=== PATIENT | female | born 1970 | race Caucasian/White ===

== ENCOUNTER 2022-07-08 08:07 | Emergency (ER) | payer BC ==
[2022-07-08] MEDS ORDERED: ONDANSETRON 4 MG/2 ML VIAL ONE (08:31)
[2022-07-08] MEDS ORDERED: FENTANYL CITR 100 MCG/2 ML ONE (08:31)
[2022-07-08] MEDS ORDERED: MAGNESIUM SULFATE 1 gm IVPB 1 GM/100 ML BAG IV ONE (08:31)
[2022-07-08] MEDS ORDERED: NA CHLORIDE 0.9% 1,000 ML ONE (08:31)
[2022-07-08 08:34] LABS: Absolute Lymphocytes (CBC) 2.1 K/uL (0.7-4.9); Hematocrit 38.3 % (36.0-45.0); Lymphocytes % 32.6 % (15.3-44.8); MPV 7.9 fL (7.6-11.3); RBC Red Blood Cell Count 4.26 M/uL (3.86-4.86)
[2022-07-08 08:51] LABS: Albumin 3.8 g/dL (3.4-5.0); Bilirubin Total 0.3 mg/dL (0.2-1.0); Potassium 4.1 mmol/L (3.5-5.1); Protein, Total 7.3 g/dL (6.4-8.2)
--- NOTE | 2022-07-08 09:13 | RAD REPORT ---
EXAM DESCRIPTION: CT - Stone Protocol - 07/08/2022 8:45 am CLINICAL HISTORY: Abdominal pain./reflected COMPARISON: None. TECHNIQUE: Computed axial tomography of the abdomen pelvis was obtained without oral or IV contrast. Lack of IV and oral contrast limits evaluation of solid organs, appendix, bowel, and vessels. Schwarz l reformatted images were obtained and reviewed. All CT scans are performed using dose optimization technique as appropriate and may include automated exposure control or mA/KV adjustment according to patient size. FINDINGS: Several left renal calculi. Mild to moderate left hydronephrosis. Left ureter dilated. 5 m illimeter calculus distal left ureter. Right renal/ureteral calculus is not seen. The liver, spleen, pancreas and adrenals appear grossly normal There is no evidence of diverticulitis. The appendix appears normal Air within the vagina. Small umbilical hernia IMPRESSION: 5 millimeter calculus distal left ureter resulting in mild to moderate hydronephrosis Air within the vagina can be insignificant. It also can signify infection and fistula
[2022-07-08 09:18] LABS: Urine Blood 2+ (Negative); Urine Glucose Negative (Negative); Urine Protein Trace (Negative)
[2022-07-08] MEDS ORDERED: KETOROLAC 30 MG/ML INJ ONE (09:24)
[2022-07-08 09:27] LABS: Transitional Epithelial <5 /HPF (None Seen); Urine Bacteria None Seen /HPF (<20); Urine Mucus 2+ /HPF (None Seen); Urine RBC >50 /HPF (None Seen)
[2022-07-08] MEDS ORDERED: TAMSULOSIN 0.4 MG SR CAP ONE (09:28)
[2022-07-08] MEDS ORDERED: KETAMINE HCL 500 MG/5 ML VIAL ONE (09:57)
--- NOTE | 2022-07-08 12:13 | EDPHYS ---
Physician Documentation [facility] Name: Viridiana Galaviz Age: 52 yrs Sex: Female : 1970 Arrival Date: 07/08/2022 Time: 08:11 Bed 20 Private MD: ED Physician Jagdish Mcguire HPI: 07/08 08:23 This 52 yrs old Female presents to ER via Ambulatory with complaints of Flank Pain, rn Abdominal Pain. 08:24 The patient presents with abdominal pain in the left lower quadrant. Onset: The rn symptoms/episode began/occurred this morning. The symptoms do not radiate. Associated signs and symptoms: Pertinent positives: nausea, Pertinent negatives: blood in stools, chest pain, constipation, diarrhea, dysuria, fever, shortness of breath. The symptoms are described as sharp, stabbing. Modifying factors: The symptoms are alleviated by nothing, the symptoms are aggravated by nothing. Severity of pain: At its worst the pain was moderate in the emergency department the pain is unchanged. The patient has experienced a previous episode. The patient has not recently seen a physician. Pt reports sudden onset left lower abd pain, assoc with nausea, no fever, + hx of kidney stones. No trauma. No vomiting or diarrhea. . 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 - Social history:: Smoking status: Patient denies any tobacco usage or history of. - Family history:: not pertinent. - Hospitalizations: : No recent hospitalization is reported. ROS: 08:24 Constitutional: Negative for fever, and weight loss, Eyes: Negative for injury, pain, rn redness, and discharge, Neck: Negative for injury, pain, and swelling, Cardiovascular: Negative for chest pain, palpitations, and edema, Respiratory: Negative for shortness of breath, cough, wheezing, and pleuritic chest pain, Abdomen/GI: + LLQ abd pain and nausea Back: Negative for injury and pain, : Negative for injury, bleeding, discharge, and swelling, MS/Extremity: Negative for injury and deformity, Skin: Negative for injury, rash, and discoloration, Neuro: Negative for headache, weakness, numbness, tingling, and seizure. Exam: 08:24 Constitutional: This is a well developed, well nourished patient who is awake, alert, rn appears uncomfortable Head/Face: Normocephalic, atraumatic. Cardiovascular: Regular rate and rhythm. No pulse deficits. Respiratory: No increased work of breathing, no retractions or nasal flaring. Abdomen/GI: Soft, non-tender Back: No spinal tenderness. No costovertebral tenderness. Full range of motion. Skin: Warm, dry MS/ Extremity: Pulses equal, no cyanosis. Neuro: Awake and alert, GCS 15 Vital Signs: 08:17 BP 96 / 62; Pulse 68; Resp 18; Temp 98.4; Pulse Ox 99% on R/A; Weight 92.99 kg; Height ph 5 ft. 7 in. (170.18 cm); 08:35 BP 102 / 70; Pulse 58; Resp 18; Pain 10/10; ll1 08:53 BP 107 / 59; Pulse 54; Resp 18; Pain 10/10; ll1 09:29 BP 105 / 48; Pulse 56; Resp 18; Pain 10/10; ll1 09:58 BP 96 / 55; Pulse 54; Resp 17; Pulse Ox 99% ; Pain 8/10; ll1 10:06 BP 124 / 77; Pulse 54; Resp 17; Pain 8/10; ll1 10:11 Pain 2/10; ll1 10:48 BP 108 / 66; Pulse 58; Resp 16; Pain 5/10; ll1 12:00 BP 105 / 69; Pulse 52; Resp 18; Pulse Ox 99% ; kb3 08:17 Body Mass Index 32.11 (92.99 kg, 170.18 cm) ph MDM: 08:11 Patient medically screened. rn 10:42 ED course: Pain improved to 4/10 after 15mg ketamine. Ketamine chosen due to borderline rn low BP. . 12:11 Differential diagnosis: diverticulitis, gastroesophageal reflux disease, non-specific rn abd pain, Pyelonephritis, Ureterolithiasis, urinary tract infection. Data reviewed: vital signs, nurses notes, lab test result(s), radiologic studies, CT scan, and as a result, I will discharge patient. Counseling: I had a detailed discussion with the patient and/or guardian regarding: the historical points, exam findings, and any diagnostic results supporting the discharge/admit diagnosis, lab results, radiology results, the need for outpatient follow up, to return to the emergency department if symptoms worsen or persist or if there are any questions or concerns that arise at home. Response to treatment: the patient's symptoms have markedly improved after treatment, and as a result, I will discharge patient. Special discussion: I discussed with the patient/guardian in detail that at this point there is no indication for admission to the hospital. It is understood, however, that if the symptoms persist or worsen the patient needs to return immediately for re-evaluation. 07/08 08:22 Order name: CBC with Diff; Complete Time: 09:02 rn 07/08 08:22 Order name: CMP; Complete Time: 09:02 rn 07/08 08:22 Order name: Lipase; Complete Time: 09:02 rn 07/08 08:22 Order name: Urine Microscopic Only; Complete Time: 09:30 rn 07/08 08:22 Order name: Blood Culture Adult (2) rn 07/08 09:18 Order name: Urine Dipstick-Ancillary; Complete Time: 09:20 EDMS 07/08 08:22 Order name: CT Stone Protocol; Complete Time: 09:20 rn 07/08 08:22 Order name: IV Saline Lock; Complete Time: 08:23 rn 07/08 08:22 Order name: Labs collected and sent; Complete Time: 08:23 rn 07/08 08:22 Order name: Urine Dipstick-Ancillary (obtain specimen); Complete Time: 09:29 rn Administered Medications: 08:30 Drug: NS 0.9% 1000 ml Route: IV; Rate: 1000 ml; Site: left antecubital; ll1 09:56 Follow up: Response: No adverse reaction; IV Status: Completed infusion; IV Intake: ll1 1000ml 08:31 Drug: Zofran (Ondansetron) 4 mg Route: IVP; Site: left antecubital; ll1 09:11 Follow up: Response: No adverse reaction; Nausea is decreased ll1 08:33 Drug: fentaNYL (PF) 50 mcg Route: IVP; Site: left antecubital; ll1 09:11 Follow up: Response: No adverse reaction; Pain is unchanged, physician notified; RASS: ll1 Alert and Calm (0) 08:35 Drug: Magnesium Sulfate 1 grams Route: IVPB; Infused Over: 1 hrs; Site: left ll1 antecubital; 09:29 Follow up: Response: No adverse reaction; IV Status: Completed infusion; IV Intake: [id number] 09:00 Drug: fentaNYL (PF) 50 mcg {Note: pain 10+/10, RASS 0.} Route: IVP; Site: left ll1 antecubital; 09:57 Follow up: Response: No adverse reaction; Pain is decreased; RASS: Alert and Calm (0) [facility] 09:25 Drug: Ketorolac 30 mg Route: IVP; Site: left antecubital; [facility] 09:56 Follow up: Response: No adverse reaction; Pain is decreased; RASS: Alert and Calm (0) [facility] 09:29 Drug: Flomax (tamsulosin) 0.4 mg Route: PO; [facility] 09:57 Follow up: Response: No adverse reaction [facility] 10:01 Drug: Ketamine 15 mg Route: IVP; Site: left antecubital; 1 10:11 Follow up: Response: No adverse reaction; Pain is decreased; RASS: Drowsy (-1) [facility] 11:43 Drug: Ketalar (ketamine) 15 mg Route: IVP; Site: right forearm; 1 12:15 Follow up: Response: No adverse reaction; Pain is decreased kb3 Disposition Summary: 07/08/22 12:12 Discharge Ordered Location: Home rn Problem: new rn Symptoms: have improved rn Condition: Stable rn Diagnosis - Calculus of ureter rn Followup: rn - With: Private Physician - When: As needed - Reason: Recheck today's complaints, Re-evaluation by your physician Discharge Instructions: - Discharge Summary Sheet rn - Kidney Stones rn - Renal Colic rn - Dietary Guidelines to Help Prevent Kidney Stones rn Forms: - Medication Reconciliation Form rn - Thank You Letter rn - Antibiotic overnight babysitter - Prescription Opioid Use rn Prescriptions: - Flomax 0.4 mg Oral capsule - take 1 capsule by ORAL route once daily Stop taking once you have passed your rn kidney stone. Can lower blood pressure and make you dizzy.; 5 capsule; Refills: 0, Product Selection Permitted - ondansetron 4 mg Oral tablet,disintegrating - take 1 tablet by ORAL route every 8 hours As needed; 10 tablet; Refills: 0, rn Product Selection Permitted - Tramadol 50 mg Oral Tablet - take 1 tablet by ORAL route every 8 hours as needed; 12 tablet; Refills: 0, rn Product Selection Permitted Signatures: Dispatcher [employer] Jagdish Chirinos MD MD rn Hall, Patricia, RN RN Jose Ramon Whelan RN RN 1 Daija, Roshni RUDOLPH kb3
--- NOTE | 2022-07-08 12:13 | ER ---
Nurse's Notes [facility] Name: Viridiana Galaviz Age: 52 yrs Sex: Female : 1970 Arrival Date: 07/08/2022 Time: 08:11 Bed 20 Private MD: Diagnosis: Calculus of ureter Presentation: 07/08 08:17 Chief complaint: Patient states: L sided flank and abdominal pain that started at ph approx 0630, also reports nausea and difficulty urinating, hx of kidney stones. Coronavirus screen: Vaccine status: Patient reports receiving the 2nd dose of the covid vaccine. Ebola Screen: No symptoms or risks identified at this time. Initial Sepsis Screen: Does the patient meet any 2 criteria? No. Patient's initial sepsis screen is negative. Does the patient have a suspected source of infection? No. Patient's initial sepsis screen is negative. Risk Assessment: Do you want to hurt yourself or someone else? Patient reports no desire to harm self or others. Onset of symptoms was July 08, 2022. 08:17 Method Of Arrival: Ambulatory ph 08:17 Acuity: ROSANNA 3 ph Triage Assessment: 08:19 General: Appears in no apparent distress. uncomfortable, Behavior is cooperative, ph Denies fever. Pain: Complains of pain in anterior aspect of left lateral abdomen Pain radiates to left lower quadrant. Neuro: Level of Consciousness is awake, alert, obeys commands, Oriented to person, place, time, situation. Respiratory: Airway is patent Respiratory effort is even, unlabored. GI: Reports lower abdominal pain, nausea. : Reports inability to void, pain in left flank(s), lower quadrant(s). 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 - Social history:: Smoking status: Patient denies any tobacco usage or history of. - Family history:: not pertinent. - Hospitalizations: : No recent hospitalization is reported. Screenin:13 [facility] ED Fall Risk Assessment (Adult) History of falling in the last 3 months, ll1 including since admission No falls in past 3 months (0 pts) Confusion or Disorientation No (0 pts) Intoxicated or Sedated No (0 pts) Impaired Gait No (0 pts) Mobility Assist Device Used No (0 pt) Altered Elimination Yes (1 pt) Score/Fall Risk Level 0 - 2 = Low Risk Oriented to surroundings, Maintained a safe environment, Educated pt \T\ family on fall prevention, incl call for assistance when getting out of bed, Hourly rounding (assess needs \T\ fall precautionary measures) done. Abuse screen: Denies threats or abuse. Nutritional screening: No deficits noted. Tuberculosis screening: No symptoms or risk factors identified. 12:15 Fall Risk No fall in past 12 months (0 pts). No secondary diagnosis (0 pts). IV access kb3 (20 points). Ambulatory Aid- None/Bed Rest/Nurse Assist (0 pts). Gait- Normal/Bed Rest/Wheelchair (0 pts) Mental Status- Oriented to own ability (0 pts). Total Ross Fall Scale indicates No Risk (0-24 pts). Assessment: 08:39 Reassessment: No changes from previously documented assessment. Patient and/or family ll1 updated on plan of care and expected duration. Pain level reassessed. Patient is alert, oriented x 3, equal unlabored respirations, skin warm/dry/pink. 08:53 Reassessment: No changes from previously documented assessment. Patient and/or family ll1 updated on plan of care and expected duration. Pain level reassessed. Patient is alert, oriented x 3, equal unlabored respirations, skin warm/dry/pink. 08:59 Reassessment: No changes from previously documented assessment. Patient and/or family ll1 updated on plan of care and expected duration. Pain level reassessed. Patient is alert, oriented x 3, equal unlabored respirations, skin warm/dry/pink. 09:58 Reassessment: No changes from previously documented assessment. Patient and/or family ll1 updated on plan of care and expected duration. Pain level reassessed. Patient is alert, oriented x 3, equal unlabored respirations, skin warm/dry/pink. 10:48 Reassessment: No changes from previously documented assessment. Patient and/or family ll1 updated on plan of care and expected duration. Pain level reassessed. Patient is alert, oriented x 3, equal unlabored respirations, skin warm/dry/pink. 12:15 General: Received care of pt from Yola RUDOLPH. Pt is AAOx4. Reports feeling much better kb3 after last pain medication administration. Left flank pain now 2/10 and dull. Updated regarding POC including pending discharge. Pt with no questions at this time. Vital Signs: 08:17 BP 96 / 62; Pulse 68; Resp 18; Temp 98.4; Pulse Ox 99% on R/A; Weight 92.99 kg; Height ph 5 ft. 7 in. (170.18 cm); 08:35 BP 102 / 70; Pulse 58; Resp 18; Pain 10/10; ll1 08:53 BP 107 / 59; Pulse 54; Resp 18; Pain 10/10; ll1 09:29 BP 105 / 48; Pulse 56; Resp 18; Pain 10/10; ll1 09:58 BP 96 / 55; Pulse 54; Resp 17; Pulse Ox 99% ; Pain 8/10; ll1 10:06 BP 124 / 77; Pulse 54; Resp 17; Pain 8/10; ll1 10:11 Pain 2/10; ll1 10:48 BP 108 / 66; Pulse 58; Resp 16; Pain 5/10; ll1 12:00 BP 105 / 69; Pulse 52; Resp 18; Pulse Ox 99% ; kb3 08:17 Body Mass Index 32.11 (92.99 kg, 170.18 cm) ph ED Course: 08:11 Patient arrived in ED. rg4 08:11 Jagdish Mcguire MD is Attending Physician. rn 08:13 Jose Ramon Whelan, RN is Primary Nurse. ll1 08:13 Arm band placed on Patient placed in an exam room, on a stretcher. ll1 08:14 Patient has correct armband on for positive identification. Bed in low position. Call ll1 light in reach. Side rails up X 1. Client placed on continuous cardiac and pulse oximetry monitoring. NIBP monitoring applied. 08:18 Triage completed. ph 08:20 Inserted saline lock: 22 gauge in left antecubital area, using aseptic technique. Blood ll1 collected. 08:39 No provider procedures requiring assistance completed. ll1 08:47 CT Stone Protocol In Process Unspecified. EDMS 12:15 IV discontinued, intact, bleeding controlled, No redness/swelling at site. Pressure kb3 dressing applied. Administered Medications: 08:30 Drug: NS 0.9% 1000 ml Route: IV; Rate: 1000 ml; Site: left antecubital; 1 09:56 Follow up: Response: No adverse reaction; IV Status: Completed infusion; IV Intake: ll1 1000ml 08:31 Drug: Zofran (Ondansetron) 4 mg Route: IVP; Site: left antecubital; 1 09:11 Follow up: Response: No adverse reaction; Nausea is decreased ll1 08:33 Drug: fentaNYL (PF) 50 mcg Route: IVP; Site: left antecubital; 1 09:11 Follow up: Response: No adverse reaction; Pain is unchanged, physician notified; RASS: 1 Alert and Calm (0) 08:35 Drug: Magnesium Sulfate 1 grams Route: IVPB; Infused Over: 1 hrs; Site: left ll1 antecubital; 09:29 Follow up: Response: No adverse reaction; IV Status: Completed infusion; IV Intake: [id number] 09:00 Drug: fentaNYL (PF) 50 mcg {Note: pain 10+/10, RASS 0.} Route: IVP; Site: left ll1 antecubital; 09:57 Follow up: Response: No adverse reaction; Pain is decreased; RASS: Alert and Calm (0) 1 09:25 Drug: Ketorolac 30 mg Route: IVP; Site: left antecubital; 1 09:56 Follow up: Response: No adverse reaction; Pain is decreased; RASS: Alert and Calm (0) 1 09:29 Drug: Flomax (tamsulosin) 0.4 mg Route: PO; 1 09:57 Follow up: Response: No adverse reaction 1 10:01 Drug: Ketamine 15 mg Route: IVP; Site: left antecubital; 1 10:11 Follow up: Response: No adverse reaction; Pain is decreased; RASS: Drowsy (-1) 1 11:43 Drug: Ketalar (ketamine) 15 mg Route: IVP; Site: right forearm; ll1 12:15 Follow up: Response: No adverse reaction; Pain is decreased kb3 Medication: 08:21 VIS not applicable for this client. ph Intake: 09:29 IV: 50ml; Total: 50ml. ll1 09:56 IV: 1000ml; Total: 1050ml. ll1 Outcome: 12:12 Discharge ordered by rn 12:35 Discharged to home ambulatory, with family. kb3 12:35 Condition: stable 12:35 Discharge instructions given to patient, family, Instructed on discharge instructions, follow up and referral plans. medication usage, Demonstrated understanding of instructions, follow-up care, medications, Prescriptions given X 3. 12:36 Patient left the ED. kj1 Signatures: Dispatcher [employer] EDMS Jagdish Mcguire MD MD rn Hall, Patricia, RN RN Angela Leo4 Disha Clayton kj1 Jose Ramon Whelan RN RN ll1 Roshni Choe, RN RN kb3
[2022-07-08 12:41] VITALS: TEMP 98.4; O2SAT 99
[2022-07-08 12:49] VITALS: BP 108/66
== END 2022-07-08 12:36 | disposition home or self-care (01) ==
LOC: ER 08:07
DX: N20.1 Calculus of ureter (principal); Z87.442 Personal history of urinary calculi
CPT/HCPCS: 87040; 85025; 36415; 83690; 80053; 76377; 74176; J3010; J3475; J7030; J2405; 81003; 81015; 99284